=== PATIENT | male | born 1995 | race Caucasian/White ===

== ENCOUNTER 2018-06-10 13:02 | Emergency (ER) | payer MEDICAID, SELFPAY ==
[2018-06-10 13:03] VITALS: BP 138/76; PULSE 79; RESP 16; TEMP 36.7; O2SAT 99; BMI 20.3
[2018-06-10 13:44] LABS: Absolute Lymphocyte Count 1.91 X10^3/ul (0.83-4.51); Absolute Neutrophil Count 2.4 X10^3/uL (2.0-7.7); Basophil# 0.06 X10^3/uL; Basophil% 1.2 % (0-1); Eosinophil# 0.13 X10^3/uL; Eosinophils% 2.5 % (0-5); Hematocrit 41.2 % (40-54); Hemoglobin 14.9 g/dl (13.0-16.5); Lymphocyte # 1.91 X10^3/ul (4.0); Lymphocyte % 36.9 % (19-41); Mean Corp Hgb Conc 36.2 g/gl (32-36); Mean Corpuscular Hgb 30.6 pg (27.0-32.0); Mean Corpuscular Volume 84.6 fL (80-94); Mean Platelet Vol. 9.7 fl (6.2-12.0); Monocyte# 0.66 X10^3/uL; Monocyte% 12.7 % (0-10); Neutrophil # 2.41 X10^3/uL (2.7-7.7); Neutrophil % 46.5 % (47-70); POSITIVE COUNT NO; POSITIVE DIFFERENTIAL NO; POSITIVE MORPHOLOGY NO; Platelet Count 180 K/mm3 (150-450); RBC Distribution Width CV 12.4 % (11.6-14.6); Red Blood Count 4.87 M/mm3 (4.6-6.2); White Blood Count 5.2 K/mm3 (4.4-11.0)
[2018-06-10 13:55] LABS: ALB/GLOB Ratio 1.3 RATIO (0.9-2.4); AST(SGOT) 21 U/L (15-37); Alanine Aminotransfer ALT/SGPT 30 U/L (16-61); Albumin, Serum 4.3 g/dL (3.2-5.0); Alkaline Phosphatase 73 U/L (45-117); Anion Gap 7 (5-15); BUN 13 mg/dL (7-18); Calcium,Total 9.2 mg/dL (8.5-10.1); Chloride 106 mmol/L (98-107); Creatinine, Serum 0.77 mg/dL (0.70-1.30); EST Glomerular Filtration Rate 135 mL/min (>60); Est Glom Filt Rate - Afr Amer 163 mL/min (>60); Estimated Creatinine Clearance 129.37 ml/min; Globulin 3.4 g/dL (2.2-4.2); Glucose 90 mg/dL (74-106); Potassium 4.1 mmol/L (3.5-5.1); Protein, Total 7.7 g/dL (6.4-8.2); Sodium Level 138 mmol/L (136-145)
[2018-06-10 14:07] LABS: Bacteria 0 SEEN /hpf (None Seen); Color, Urine Yellow (Yellow); Glucose, Dipstick Normal (Normal); Ketone-Dipstick Negative (Negative); Leukocyte Esterase-Dipstick 25 /ul (Negative); Mucous, Urine 0 SEEN /hpf (<or=2+); Nitrite-Dipstick Negative (Negative); Occult Blood-Urine Negative /ul (Negative); Protein-Dipstick 15 mg/dl (Negative); Red Blood Cells-Urine 0 SEEN /hpf (0-5); Specific Gravity, Urine 1.015 (1.002-1.030); Squamous Epithelial Cells - UA 0 SEEN /hpf (0-5); Urine Bilirubin Dipstick Negative (Negative); Urine Clarity Clear (Clear); Urine Urobilinogen 1 mg/dl (Normal); White Blood Cells 0 SEEN /hpf (0-5)
--- NOTE | 2018-06-10 15:56 | ED.VISSUMM ---
- ER Visit Summary Date of Service: 06/10/18 Chief Complaint: [abd pain] History of Present Illness: The patient is a 23 M [the presents with intermittent abdominal pain for months. He describes intermittent cramping lower abdominal pains that are nonradiating. He states the pain is very mild currently. No associated nausea, vomiting, or diarrhea. He denies any urinary symptoms. He denies any trauma or injury to the abdomen. No fevers or recent illness. He overall appears well and nontoxic. He has no other complaints other than an itching rash in his left groin consistent with tinea cruris.] Physical Examination: [General: The patient appears well and in no apparent distress. Patient is resting comfortably on cart. Skin: Warm, dry, no pallor noted. Tinea cruris L groin. Head: Normocephalic, atraumatic Neck: Supple, nontender. Cardiovascular: Regular Rate and Rhythm, no gallups or rubs Respiratory: Patient is in no distress, no accessory muscle use, lungs are clear to auscultation, no wheezing, rales or rhonchi Musculoskeletal: normal ROM, no deformity, no tenderness, no swelling. 2+ radial and DP pulses symmetric. GI: No tenderness to palpation, no masses appreciated. No rebound, guarding, or rigidity noted. No CVA tenderness. Neurological: A&O, normal strength and sensation. Psychiatric: Cooperative] Test Results: [Bloodwork overall unremarkable. Urinalysis not consistent with infection.] Emergency Department Course and Treatment: [Bloodwork overall unremarkable. Urinalysis was not consistent with infection. Patient declined anything for his symptoms here. I do not feel he has any evidence of acute surgical process at this time. He will be referred to follow-up with his primary provider and I will provide him with a prescription for Bentyl and Lotrimin. He was advised to return with any new or worsening symptoms and follow up with his primary provider within 24 hours for repeat evaluation and abdominal examination. He understands signs and symptoms to return with and if he is unable to obtain a close follow-up appointment. Patient verbalized understanding and is agreeable with this plan of care. Patient was discharged home in stable condition.] Treatment Plan: [see above] Disposition: [discharge home, stable condition] Impression: [Abdominal pain, lower quadrants, Tonia Cruris L groin] This note was generated with Dragon dictation software. It may contain incorrect words, spelling, and punctuation that were not noted in review of the chart prior to signing ED Disposition - Plan for ED Patient: Disposition: Home or Assisted Living Chief Complaint: Abd Pain Instructions: ED Abdominal Pain Unkn Cause Prescriptions: Dicyclomine HCl [Bentyl] 20 mg PO TIDAC PRN #20 cap PRN Reason: abd pain Clotrimazole [Lotrimin] 1 applicatio TOPICAL BID #1 tube Referrals: Lien King MD [STAFF PHYSICIAN] -
[2018-06-10 16:06] VITALS: BP 131/74; PULSE 62; RESP 15; O2SAT 99
== END 2018-06-10 16:07 | disposition home or self-care (01) ==
PROVIDERS: Emergency Provider Emergency Medicine
DX: R10.30 Lower abdominal pain, unspecified (principal); B35.6 Tinea cruris
CPT/HCPCS: 80053; 81001; 85025; 99283; A4216

== ENCOUNTER 2021-03-28 00:49 | Emergency (ER) | payer SELFPAY ==
[2021-03-28 00:50] VITALS: BP 147/105; PULSE 92; RESP 16; TEMP 36.9; O2SAT 97; BMI 22.1
--- NOTE | 2021-03-28 01:00 | EDS_ITS ---
HPI History of Present Illness Chief Complaint: Dental Narrative Narrative: Patient presenting secondary to dental pain. Patient states it of course the last 2 weeks he has been dealing with dental pain in his left jaw. He is unsure if it is upper his lower molars, but the pain shoots up into his head. No difficulty with opening closing his mouth no difficulty with chewing, eating, swallowing. Denies any constitutional symptoms such as fevers. He has not tried any [id number] remedies and has not yet seen a dentist for this. Patient denies any history of immunosuppression. Review of systems otherwise negative. [facility] Medical History Anxiety Home Medications clotrimazole 1 applicatio TOPICAL BID #1 tube 06/10/18 [Rx Last Taken Unknown] dicyclomine 20 mg PO TIDAC PRN #20 cap 06/10/18 [Rx Last Taken Unknown] naproxen 500 mg PO BID PRN #20 tab 03/28/21 [Rx Last Taken Unknown] penicillin V potassium 500 mg PO 4X/DAY #40 tab 03/28/21 [Rx Last Taken Unknown] Allergy/AdvReac Type Severity Reaction Status Date / Time No Known Allergies Allergy Verified 03/28/21 00:52 Social History Smoking Status: Current every day smoker tobacco type: cigarettes ROS ROS ED Constitutional Constitutional ED: Denies fever(s) ENT ENT ED: Reports other Details: Dental pain Respiratory/Chest Respiratory/Chest: Denies dyspnea Gastrointestinal Gastrointestinal: Denies nausea or vomiting Musculoskeletal Musculoskeletal: Denies myalgias Integumentary Denies rash Hematologic/Lymphatic Hematologic/Lymphatic: Denies easy bleeding or easy bruising Allergic/Immunologic Allergic/Immunologic ED: Reports other Details: No history of immunosuppression EXAM Physical Exam Const Vital Signs: 03/28/21 00:50 Temperature 98.4 F Temperature Source Oral Pulse Rate 92 Respiratory Rate 16 Blood Pressure 147/105 H Blood Pressure Mean 119 Pulse Ox 97 Oxygen Delivery Method Room Air Positive well nourished and well developed General Appearance ED: well developed and NAD HEENT HEENT Narrative: Oral exam shows multiple fillings. Patient has a significant dental carry of his third left mandibular molar. He complains more of pain of his upper molar on the same side which appears slightly displaced, but not overly impacted. There is no evidence of abscess in the gumline. No trismus. Soft sublingual space. Normal posterior oropharynx. Negative for trauma Neck no lymphadenopathy and supple Resp normal respiratory effort and clear to auscultation bilaterally Cardio regular rate, regular rhythm and no murmurs Extremity normal to inspection Neuro oriented x3 Sensorium / Orientation: alert Psych mental status grossly normal Skin no rashes or lesions noted MDM MDM MDM Narrative Medical decision making narrative: Patient presented secondary to dental pain. Patient has no signs of abscess that required drainage no signs of deep space infection to be treated with penicillin and Naprosyn first dose is given in the emergency department. Discharge Plan Triage Chief Complaint: Dental ED Provider: Roc Clements Dx/Rx/DC Orders Clinical Impression: Pain, dental Instructions: ED Dental Pain Prescriptions: New naproxen 500 mg tablet 500 mg PO BID PRN Qty: 20 RF: 0 penicillin V potassium 500 mg tablet 500 mg PO 4X/DAY Qty: 40 RF: 0 No Action dicyclomine 10 MG capsule 20 mg PO TIDAC PRN (Reason: abd pain) Qty: 20 RF: 0 clotrimazole 1 APPLICATIO cream 1 applicatio TOPICAL BID Qty: 1 RF: 0 Primary Care Provider: Care Physician,No Primary Referrals: Care Physician,No Primary [Primary Care Provider] - Activity Restrictions/Additional Instructions: Follow-up with a dentist as soon as possible Disposition Disposition: Home, Self Care
[2021-03-28] MEDS: Naproxen 250 MG Tablet 500 MG PO (01:13)
[2021-03-28] MEDS: Penicillin Vk 250 MG Tablet 500 MG PO (01:13)
== END 2021-03-28 01:16 | disposition home or self-care (01) ==
LOC: ED 01:12
PROVIDERS: Emergency Provider Emergency Medicine
DX: K08.89 Other specified disorders of teeth and supporting structures (principal); F17.210 Nicotine dependence, cigarettes, uncomplicated
CPT/HCPCS: 99283

== ENCOUNTER 2025-03-22 10:19 | Emergency (ER) | payer MEDICAID, SELFPAY ==
[2025-03-22 10:19] VITALS: BP 117/81; PULSE 84; RESP 18; TEMP 36.7; O2SAT 98; BMI 20.5
--- NOTE | 2025-03-22 10:28 | EKG12_ITS ---
Test Reason : CP/DENTAL PAIN Blood Pressure : */* mmHG Vent. Rate : 73 BPM Atrial Rate : 73 BPM P-R Int : 150 ms QRS Dur : 96 ms QT Int : 380 ms P-R-T Axes : 63 63 41 degrees QTcB Int : 418 ms Sinus rhythm with marked sinus arrhythmia Otherwise normal ECG Confirmed by ORTEGA DE SOUZA, CHARLA ([id number]), video tape editor JUAN DONATO ([id number]) on 03/23/2025 10:07:38 AM Referred By: Confirmed By: CHARLA VIVAS MD
--- NOTE | 2025-03-22 10:28 | EKG12_ITS ---
Test Reason : CP/DENTAL PAIN Blood Pressure : */* mmHG Vent. Rate : 73 BPM Atrial Rate : 73 BPM P-R Int : 150 ms QRS Dur : 96 ms QT Int : 380 ms P-R-T Axes : 63 63 41 degrees QTcB Int : 418 ms Sinus rhythm with marked sinus arrhythmia Otherwise normal ECG Confirmed by ORTEGA DE SOUZA, CHARLA ([id number]), editor managing director JUAN DONATO ([id number]) on 03/23/2025 10:07:38 AM Referred By: Confirmed By: CHARLA VIVAS MD
--- NOTE | 2025-03-22 10:31 | EDS_ITS ---
HPI History of Present Illness Chief Complaint: Chest Pain Informant: patient Onset/Context/Timing Onset: Yesterday Timing: Intermittent Quality: Positive for Dull and - (Pinching) Location: Substernal Worsened By: Nothing Relieved By: - (Deep breathing) Associated Symptoms: Positive for Nausea; Negative for Vomiting, Diaphoresis, Dyspnea, Cough, Fever, Lightheadedness, Acid Reflux or Palpitations Narrative Narrative: Patient presents with chest pain that began last night. Patient states it went away last night and then came back again today. Patient states it lasted for approximately 2 hours today. Patient describes it as dull and pinching. Patient states it is over the substernal area. Patient states it is better when he is able to take deep breath. Patient states nothing makes it worse. Patient denies any fevers or chills. Patient denies any shortness of breath or cough. Patient also admits to some pain in his lower molar area. Patient describes it as throbbing. Patient states his wisdom teeth are coming in crooked. CVD Risk Factors: Negative for Hypertension, Diabetes, Hypercholesterolemia, Family History 1' </=55 or Smoking PE Risk Factors: Negative for Recent Travel/Surgery, Recent Immobilization, Prior DVT or PE, Cancer or OCP + Smoking + >/=35 [facility] Medical History Anxiety Home Medications ?Medication ?Instructions ?Recorded ?Last Taken ?Type clotrimazole 1 % topical cream 1 applicatio topical BI D #1 tube 06/10/18 Unknown Rx dicyclomine 10 mg capsule 20 mg (2 x 10 mg) PO TIDAC P RN abd 06/10/18 Unknown Rx pain #20 caps naproxen 500 mg tablet 500 mg PO BID PRN #20 tabs 0 03/28/21 Unknown Rx penicillin V potassium 500 mg 500 mg PO 4X/DAY #40 tab s 03/22/25 Unknown Rx tablet Allergy/AdvReac Type Severity Reaction Status Date / Time No Known Allergies Allergy Verified 03/22/25 10:20 Surgical History no surgical history no surgical history Social History (Updated 03/22/25 @ 11:[address] Sacah Reddy, DO) Smoking Status: Current every day smoker tobacco type: cigarettes substance use type: marijuana ROS ROS ED Constitutional Constitutional ED: Denies chills or fever(s) Eyes Eyes: Denies blurry vision or change in vision ENT ENT ED: Denies rhinorrhea or sore throat Cardiovascular Cardiovascular: Reports chest pain; Denies palpitations Respiratory/Chest Respiratory/Chest: Denies cough or dyspnea Gastrointestinal Gastrointestinal: Reports nausea; Denies vomiting Genitourinary Genitourinary ED: Denies dysuria or hematuria Musculoskeletal Musculoskeletal: Reports neck pain; Denies back pain Integumentary Denies abscess or rash Neurologic Neurologic: Denies headache(s) or weakness Allergic/Immunologic Allergic/Immunologic ED: Denies mouth swelling or urticaria EXAM Physical Exam Const Vital Signs: 03/22/25 10:19 Temperature 98.1 F Temperature Source Oral Pulse Rate 84 Respiratory Rate 18 Blood Pressure 117/81 H Blood Pressure Mean 93 Pulse Ox 98 Oxygen Delivery Method Room Air Positive well nourished and well developed General Appearance ED: well developed and NAD HEENT Reports moist mucous membranes HEENT Narrative: There is some gingival edema around the right lower third molar. There is no fluctuance but there is no evidence of any abscess. There is no sublingual edema. There is no evidence of Kirill's angina. normocephalic and atraumatic Neck supple and no JVD Chest Wall palpation of chest normal Resp normal respiratory effort and clear to auscultation bilaterally Cardio regular rate and regular rhythm GI soft to palpation, non-tender and non-distended Neuro oriented x3, CN's II-XII intact bilaterally and no sensory deficits noted Sensorium / Orientation: awake and alert Motor Exam: strength 5/5 throughout Psych mental status grossly normal MDM MDM MDM Narrative Medical decision making narrative: Differential includes cardiac dysrhythmia, gastroesophageal reflux disease, musculoskeletal pain, tachycardia, and anxiety. EKG will be obtained to assess for cardiac dysrhythmia. Chest x-ray will be obtained to assess for pneumonia and bronchitis. Radiography Chest X-Ray - ED: 2 View, Read by ED Physician, Read by Radiologist and No Acute Disease Diagnostic Testing: Clinical Impression(s) from Imaging Studies Chest X-Ray 03/22/25 11:26 IMPRESSION: No acute pulmonary process Reading Location: [facility] PA and lateral chest x-ray was obtained. There are 2 views. On my independent interpretation, lung rosenbaum are clear. There is normal cardiac silhouette. Bony thorax is normal. There is no acute process noted. Radiologist also interpreted the x-ray and agrees. EKG Initial EKG: Attestation: I personally reviewed and interpreted this EKG as follows: Interpretation: Sinus Rhythm (73) and No Acute Injury Pattern Comments: EKG was obtained. On my independent interpretation, it showed a normal sinus rhythm with a rate of 73. DE interval, QRS interval, and QTc intervals were all normal. Thornton was normal. There are no acute ST or T wave changes. Prior EKG tracings: available for review Prior: Unchanged (05/31/2016) Treatment and Re-Evaluation :: Patient was advised of his findings. Patient was advised that he has infected dental caries of the right third molar. Patient was given a prescription for Pen-Vee K. Patient was given a referral for dentist and a primary care physician. Patient was instructed to follow-up in 5 to 7 days. Patient was instructed to return if worse in any way. Patient understood and was agreeable with the plan. All questions were answered. Discharge Plan Triage Chief Complaint: Chest Pain ED Provider: Sacha Reddy Dx/Rx/DC Orders Clinical Impression: Chest pain, Infected dental caries Instructions: ED Chest Pain, Noncardiac, ED Chest Pain, Uncertain Cause, ED Dental Cavity Prescriptions: New penicillin V potassium 500 mg tablet 500 mg PO 4X/DAY Qty: 40 0RF No Action dicyclomine 10 MG capsule 20 mg PO TIDAC PRN (Reason: abd pain) Qty: 20 0RF clotrimazole 1 APPLICATIO cream 1 applicatio TOPICAL BID Qty: 1 0RF Rx Instructions: use for 7-14 days naproxen 500 mg tablet 500 mg PO BID PRN Qty: 20 0RF Stand Alone Forms: Work / School Excuse Primary Care Provider: Care Physician,No Primary Referrals: Care Physician,No Primary [Primary Care Provider] - Tia Polanco [facility] - 5-7 Days Print Language: Indonesian Disposition Disposition: Home, Self Care
--- NOTE | 2025-03-22 11:26 | RAD_ITS ---
PROCEDURE: CHEST PA AND LATERAL 03/22/2025 REASON FOR EXAM: CHEST PAIN TECHNIQUE: CHEST PA AND 2 LATERAL FINDINGS: Hardware: EKG leads overlie the chest Heart: The heart size is normal. Mediastinum: The mediastinal contour is unremarkable. Lungs: The lungs are clear. Bones: RAD/Chest PA and Lateral IMPRESSION: No acute pulmonary process Reading Location: [id number]
--- NOTE | 2025-03-22 11:26 | RAD_ITS ---
PROCEDURE: CHEST PA AND LATERAL 03/22/2025 REASON FOR EXAM: CHEST PAIN TECHNIQUE: CHEST PA AND 2 LATERAL FINDINGS: Hardware: EKG leads overlie the chest Heart: The heart size is normal. Mediastinum: The mediastinal contour is unremarkable. Lungs: The lungs are clear. Bones: RAD/Chest PA and Lateral IMPRESSION: No acute pulmonary process Reading Location: [id number]
[2025-03-22 12:10] VITALS: BP 120/78; PULSE 66; RESP 15; TEMP 36.7; O2SAT 100; O2SAT 98
== END 2025-03-22 12:12 | disposition home or self-care (01) ==
LOC: ED 11:20
PROVIDERS: Emergency Provider Emergency Medicine; Visit Provider Emergency Medicine
DX: R07.9 Chest pain, unspecified (principal); K02.9 Dental caries, unspecified; F17.210 Nicotine dependence, cigarettes, uncomplicated
CPT/HCPCS: 71046; 93005; 99283